=== PATIENT | female | born 2000 | race Caucasian/White ===

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

== ENCOUNTER 2020-03-21 20:50 | Emergency (ER) | payer OTHER ==
[~2020-03-21] VITALS: Ht 165.1 cm; Wt 41.6 kg
[2020-03-21 22:13] LABS: BASOPHILS # (AUTO) 0.05 x10^3/uL (0-0.3); BASOPHILS % (AUTO) 1 % (0-1); EOSINOPHILS # (AUTO) 0.19 x10^3/uL (0-0.8); EOSINOPHILS % (AUTO) 3 % (1-7); LYMPHOCYTES # (AUTO) 2.17 x10^3/uL (1-6.1); LYMPHOCYTES % (AUTO) 37 % (22-44); MD NO; MEAN CORPUSCULAR HEMOGLOBIN 31.8 pg (27.0-34.8); MEAN CORPUSCULAR HGB CONC 33.5 g/dL (32.4-35.8); MEAN CORPUSCULAR VOLUME 94.8 fL (80-100); MEAN PLATELET VOLUME 9.7 fL (7.4-10.4); MONOCYTES # (AUTO) 0.57 x10^3/uL (0-1.4); MONOCYTES % (AUTO) 10 % (2-9); NEUTROPHILS # (AUTO) 2.84 x10^3/uL (1.8-8.0); NEUTROPHILS % (AUTO) 49 % (42-75); PLATELET COUNT 229 x10^3/uL (130-400); RED BLOOD COUNT 4.98 x10^6/uL (3.82-5.3); RED CELL DISTRIBUTION WIDTH 13.6 % (9.6-15.2)
[2020-03-21 22:25] LABS: ALBUMIN 4.3 g/dL (3.4-5.0); ANION GAP 4 mmol/L (5-15); CALCIUM 9.2 mg/dL (8.5-10.1); CHLORIDE 110 mmol/L (98-107)
[2020-03-21 22:31] LABS: CREATININE 0.72 mg/dL (0.55-1.02)
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
[2020-03-21 23:58] VITALS: BP 107/64
--- NOTE | 2020-03-21 23:59 | NUR ---
PT ON CELL PHONE IN ROOM. NO ACUTE DISTRESS NOTED. VS STABLE. CALL LIGHT IN PLACE. WILL CONTINUE TO MONITOR.
== END 2020-03-22 00:45 | disposition home or self-care (01) ==
LOC: ED 03-22 00:08
DX: N92.4 Excessive bleeding in the premenopausal period (principal); N93.8 Other specified abnormal uterine and vaginal bleeding; Z88.0 Allergy status to penicillin
CPT/HCPCS: 36415; 76830; 80048; 82040; 84702; 85025; 99284

== ENCOUNTER 2020-04-21 12:12 | Emergency (ER) | payer OTHER ==
[~2020-04-21] VITALS: Ht 165.1 cm; Wt 48.8 kg
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
[2020-04-21 13:08] VITALS: BP 109/70
== END 2020-04-21 14:03 | disposition home or self-care (01) ==
LOC: ED 12:49
DX: S80.862A Insect bite (nonvenomous), left lower leg, initial encounter (principal); R20.2 Paresthesia of skin; W57.XXXA Bitten or stung by nonvenomous insect and other nonvenomous arthropods, initial encounter; Y93.89 Activity, other specified; Y92.410 Unspecified street and highway as the place of occurrence of the external cause; Y99.8 Other external cause status
CPT/HCPCS: 36415; 80047; 99283